=== PATIENT | female | born 1995 | race Caucasian/White ===

== ENCOUNTER 2016-04-28 22:19 | Emergency (ER) | payer OTHER ==
--- NOTE | 2016-04-29 06:25 | DIAGNOSTIC IMAGING REPORT ---
PROCEDURE: CT HEAD WITHOUT CONTRAST INDICATION: HEADACHE TECHNIQUE: Noncontrast axial images with sagittal and coronal reformations. Report provided by Isabel Cordova MD ([facility]). COMPARISON: None. FINDINGS: Brain and ventricles are normal. No evidence of an acute process or hemorrhage. Sinuses and mastoids are normal. IMPRESSION: 1. Negative head CT. All CT scans at this facility use dose modulation, iterative reconstruction, and/or weight-based dosing when appropriate to reduce radiation dose to as low as reasonably achievable.
--- NOTE | 2016-04-29 06:25 | DIAGNOSTIC IMAGING REPORT ---
PROCEDURE: CT HEAD WITHOUT CONTRAST INDICATION: HEADACHE TECHNIQUE: Noncontrast axial images with sagittal and coronal reformations. Report provided by Isabel Cordova MD ([facility]). COMPARISON: None. FINDINGS: Brain and ventricles are normal. No evidence of an acute process or hemorrhage. Sinuses and mastoids are normal. IMPRESSION: 1. Negative head CT. All CT scans at this facility use dose modulation, iterative reconstruction, and/or weight-based dosing when appropriate to reduce radiation dose to as low as reasonably achievable.
--- NOTE | 2016-04-29 06:26 | DIAGNOSTIC IMAGING REPORT ---
PROCEDURE: XR CHEST 1 VIEW INDICATION: TACHYCARDIA/METH TECHNIQUE: Portable AP view (0340 hours) COMPARISON: None. FINDINGS: Lungs are clear. Heart and mediastinum are normal. Thorax is normal. IMPRESSION: 1. Negative chest.
--- NOTE | 2016-04-29 07:50 | ED CLINICAL REPORT ---
Clinical Report - Physicians/Mid Levels [facility] [address] [place] [place] [address] 04/28/2016 22:21 Patient: LINDA SHEPHERD Time Seen: 22:25. Arrived- By private vehicle. HISTORY OF PRESENT ILLNESS Chief Complaint: HEADACHE. Is still present. This started at 2200 PM; Pt had done IV meth one hour prior to the onset of severe body aches a worst headache of her life. (Came on over an hour). It is described as similar to previous headaches. Located in the right temporal and left temporal region. No preceding symptoms, blurred vision, photophobia, associated nausea or numbness. No weakness or vomiting. (5 years ago similar after meth.). Recent medical care: Not recently seen/assessed. REVIEW OF SYSTEMS No fever, ear pain, sore throat, carbon monoxide exposure or tick bite. No head injury, chest pain, difficulty breathing, cough or abdominal pain. No diarrhea, pain with urination, skin rash, enlarged lymph nodes or back pain. The patient has had muscle aches. PAST HISTORY PCP: None but has commercial insurance PROBLEMS: Ureterolithiasis. Ovarian Cyst. Abdominal Pain. UTI - Urinary Tract Infection. . Asthma. ADDITIONAL SURGERIES: Adenoidectomy. Appendectomy. Tonsillectomy. SOCIAL HISTORY History of IV drug use: methamphetamines. ADDITIONAL NOTES The nursing notes have been reviewed. PHYSICAL EXAM Vital Signs: 04/29/2016 08:01 BP: 103/62. HR: 120. RR: 17. O2 saturation: 100%. Temp: 98.1 F. Pain level now: 0. 04/29/2016 07:09 BP: 93/46. HR: 122. RR: 15. O2 saturation: 98%. Temp: 98.1 F. Pain level now: 0. 04/29/2016 06:30 BP: 92/53. HR: 129. RR: 16. O2 saturation: 98%. 04/29/2016 05:45 BP: 96/44. HR: 123. RR: 16. O2 saturation: 98%. 04/29/2016 05:15 BP: 95/48. HR: 127. RR: 15. O2 saturation: 98%. 04/29/2016 04:21 BP: 101/49. 04/29/2016 03:45 HR: 123. RR: 16. O2 saturation: 98%. 04/29/2016 03:30 HR: 124. RR: 16. O2 saturation: 98%. 04/29/2016 03:00 BP: 103/70. HR: 124. RR: 16. O2 saturation: 98%. 04/29/2016 02:30 HR: 120. RR: 16. O2 saturation: 98%. 04/29/2016 02:15 BP: 106/65. HR: 121. RR: 17. O2 saturation: 98%. 04/29/2016 01:30 BP: 105/56. HR: 125. RR: 18. O2 saturation: 99%. 04/29/2016 01:22 BP: 111/60. HR: 127. RR: 21. O2 saturation: 99%. Cazares-Cai pain scale: 0/10. 04/29/2016 00:37 BP: 110/52. HR: 131. RR: 16. O2 saturation: 98%. 04/29/2016 00:00 BP: 111/43. HR: 130. RR: 21. O2 saturation: 100%. 04/28/2016 22:55 BP: 127/71. HR: 128. RR: 27. O2 saturation: 99%. 04/28/2016 22:25 BP: 144/87. HR: 113. RR: 22. O2 saturation: 100%. Temp: 97.9 F. Pain level now: 0/10. Appearance: Alert. Patient in moderate distress. Eyes: Pupils equal, round and reactive to light. No conjunctival findings or photophobia. ENT: Pharynx normal. Neck: Normal inspection. Neck supple. No meningeal signs. CVS: Tachycardia. Heart sounds normal. Respiratory: No respiratory distress. Breath sounds normal. Abdomen: Soft and nontender. Skin: Skin warm. Normal skin color. Extremities: Extremities exhibit normal ROM. No lower extremity edema. Neuro: Oriented X 3. Alert. Mood/affect normal. Speech normal. Cranial nerves normal (as tested). No motor deficit. No sensory deficit. LABS, X-RAYS, AND EKG EKG: No acute ischemia. Rate: 122. Narrow-complex tachycardia (122). Chest X-ray: Normal Chest X-Ray. (PROCEDURE: XR CHEST 1 VIEW INDICATION: TACHYCARDIA/METH TECHNIQUE: Portable AP view (0340 hours) COMPARISON: None. FINDINGS: Lungs are clear. Heart and mediastinum are normal. Thorax is normal. IMPRESSION: 1. Negative chest. Dictated by: RANGEL CARLIN MD D: JETT;04/29/16624 <Electronically signed by RANGEL CARLIN MD in OV> 04/29/16625). CT Head: (INDICATION: HEADACHE TECHNIQUE: Noncontrast axial images with sagittal and coronal reformations. Report provided by Isabel Cordova MD ([facility]). COMPARISON: None. FINDINGS: Brain and ventricles are normal. No evidence of an acute process or hemorrhage. Sinuses and mastoids are normal. IMPRESSION: 1. Negative head CT. All CT scans at this facility use dose modulation, iterative reconstruction, and/or weight-based dosing when appropriate to reduce radiation dose to as low as reasonably achievable. Dictated by: RANGEL CARLIN MD D: JETT;04/29/16623 <Electronically signed by RANGEL CARLIN MD in OV> 04/29/16624). Laboratory Tests: CSF, Cell Count: (ALMA: 04/29/2016 02:25) ( MsgRcvd 04/29/2016 03:10) Final results Test Result Flag Units (Reference) CSF TOTAL VOLUME 4.0 CC TUBE # 3 COLOR COLORLESS APPEARANCE CLEAR CSF WBC 2 WBC/mm3 (0-5) CSF RBC 1 RBC/mm3 (0-5) CSF GLUCOSE 59 mg/dL (40-75) CSF PROTEIN 52.2 H mg/dL (15-45) NO REFERENCE RANGE. UA-Culture if indicated: (ALMA: 04/28/2016 23:08) ( MsgRcvd 04/28/2016 23:29) Final results Test Result Flag Units (Reference) URINE COLOR YELLOW URINE APPEARANCE CLOUDY URINE GLUCOSE NEGATIVE (NEGATIVE) URINE BILIRUBIN NEGATIVE (NEGATIVE) URINE KETONE NEGATIVE (NEGATIVE) URINE SPECIFIC GRAVITY 1.020 (1.010-1.030) URINE PH 7.5 (5.0-8.0) URINE PROTEIN NEGATIVE (NEGATIVE) URINE UROBILINOGEN 0.2 EU/dL (0.2-1.0) URINE NITRITE NEGATIVE (NEGATIVE) URINE BLOOD NEGATIVE (NEGATIVE) URINE LEUK ESTERASE NEGATIVE (NEGATIVE) URINE RBC 0-1 rbc/hpf (0-1) URINE WBC 0-1 wbc/hpf (0-1) URINE EPITHELIAL CELLS 1-3 EPI/hpf (0-5) URINE BACTERIA NONE SEEN (NONE SEEN) URINE COMMENT CULT NOT INDICATED 3+ AMORPHOUSURINE CULTURES ARE SET-UP BASED ON THE FOLLOWING CRITERIA:POSITIVE NITRITEPOSITIVE LEUKOCYTE ESTERASEGREATER THAN 10 WHITE BLOOD CELLSMODERATE (2+) OR GREATER BACTERIA Urine: (ALMA: 04/28/2016 23:08) ( [facility] [place] 04/28/[place] 23:25) Final results Test Result Flag Units (Reference) URINE NEGATIVE CBC w Diff: (ALMA: 04/28/2016 22:25) ( [facility] 04/28/2016 22:54) Final results Test Result Flag Units (Reference) WHITE BLOOD COUNT 5.4 K/uL (4.5-11.5) RED BLOOD COUNT 4.59 M/uL (4.00-5.20) HEMOGLOBIN 13.8 gm/dL (12.0-16.0) HEMATOCRIT 40.6 % (36.0-46.0) MEAN CELL VOLUME 89 fL (80-100) MEAN CORPUSCULAR HGB 30 pg (26-34) MEAN CORPUSCULAR HGB CONC 34 g/dL (31-37) RED CELL DISTRIBUTION WIDTH 12.9 % (11.6-14.8) PLATELET COUNT 224 K/uL (150-400) NEUTROPHIL % 73.7 % (50-75) LYMPH % 24.6 L % (25-40) MONO % 0.3 L % (3-14) EOSINOPHIL % 1.2 % (0-4) BASOPHIL % 0.2 % (0-2) CMP: (ALMA: 04/28/2016 22:25) ( [facility] 04/28/2016 23:05) Final results Test Result Flag Units (Reference) GLUCOSE 81 mg/dL (70-110) BUN 14 mg/dL (7-18) CREATININE 0.9 mg/dL (0.6-1.3) Estimated GFR >60 mL/min Estimated GFR- >60 mL/min Note: Persistent reduction over 3 months in eGFR<60 mL/min/1.73 m2 defines CKD. Patients with eGFR values>=60 mL/min/1.73 m2 may also have CKD if evidence ofpersistent proteinuria. Additional information may be foundat www.kidney.org. SODIUM 143 mmol/L (136-145) POTASSIUM 3.5 mmol/L (3.5-5.1) CHLORIDE 105 mmol/L (98-107) CARBON DIOXIDE 29 mmol/L (21-32) CALCIUM 8.5 mg/dL (8.5-10.1) TOTAL PROTEIN 6.9 g/dL (6.4-8.2) ALBUMIN 3.4 g/dL (3.3-5.0) BILIRUBIN, TOTAL 0.4 mg/dL (0.0-1.0) ALKALINE PHOSPHATASE 83 U/L (46-116) AST (SGOT) 19 U/L (15-37) ALT (SGPT) 20 U/L (12-78) . PROGRESS AND PROCEDURES Course of Care: 03:23 04/29/16. CT and CSF show no sign of ICH. HR still 120-130 04:21 04/29/16. Poison control states that half life is 5 hours. So it might be 3 half lives before all effects are gone. Tachycaridia is not un expected. 05:26 04/29/16. Additional observation because of tachycardia 07:46 04/29/16. Asymptomatic sinus tach persists. Given all else negative will discharge with recheck if tachycardia persists. Disposition: Discharged. Condition: stable. CLINICAL IMPRESSION Headache. METHAMPHETAMINE ABUSE. SINUS TACHYCARDIA. INSTRUCTIONS (I MADE SURE THAT YOUR HEADACHE WAS NOT FROM NOT FROM BLEEDING IN THE BRAIN. IF YOUR HEART RATE IS OVER 100 TOMORROW YOU WILL NEED TO BE RECHECKED IN THE ED YOU NEED ASSISTANCE BECOMING DRUG FREE. CONSIDER THE FOLLOWING. Call [facility] office. Ask for Drug/Alcohol assessment [id number], [address] [place] [address] ). Understanding of the discharge instructions verbalized by patient. Follow-up with: Marilee Kent MD, [facility], , [facility], [address] [place] [address] Follow up. Reason for referral: ESTABLISH PRIMARY CARE. (Electronically signed by Laurent Cali MD 04/30/2016 10:38)
--- NOTE | 2016-04-29 07:50 | ED ORDER SUMMARY ---
..... Patient: LINDA SHEPHERD OrderSheet [facility] VisitID: [id number] [place] [address] 20y, F Registration Date/Time: 04/28/2016 ORDER SHEET Weight: 62.5 kg (measured) Allergies: No Known Drug Allergy GENERAL ORDERS: EKG - ER Stat (22:39 04/28/2016 TLewis R.N. per protocol) (Ack 22:40 Zhou) (22:47 AMcQuoid ER Tech1) CBC w Diff Urgent (22:48 04/28/2016 Merary CALDERON) (Ack 22:50 SRedmond) (22:58 LSullivan R.N.) CMP Urgent (22:48 04/28/2016 Merary CALDERON) (Ack 22:50 SRedmond) (22:58 LSullivan R.N.) UA-Culture if indicated Urgent (22:48 04/28/2016 Merary CALDERON) (Ack 22:50 SRedmond) (23:40 SRedmond) Urine Urgent (22:48 04/28/2016 Merary CALDERON) (Ack 22:50 SRedmond) (23:40 SRedmond) CT Head wo Cont (worst [place] shot meth) Urgent (23:51 04/28/2016 Merary CALDERON) (Ack 23:53 SRedmond) (0:16 RFay) CSF, Cell Count Urgent (02:27 04/29/2016 Merary CALDERON) (Ack 2:29 SRedmond) (Sent 2:29 SRedmond) (2:30 AMcQuoid ER Tech1) CSF, Culture Urgent (02:27 04/29/2016 Merary CALDERON) (Ack 2:29 SRedmond) (Sent 2:29 SRedmond) (2:30 AMcQuoid ER Tech1) CSF, Glucose Urgent (02:27 04/29/2016 Merary CALDERON) (Ack 2:29 SRedmond) (Sent 2:29 SRedmond) (2:30 AMcQuoid ER Tech1) CSF, Protein Urgent (02:27 04/29/2016 Merary CALDERON) (Ack 2:29 SRedmond) (Sent 2:29 SRedmond) (2:30 AMcQuoid ER Tech1) Chest 1V Urgent (03:25 04/29/2016 Merary CALDERON) (Ack 3:33 SRedmond) (3:44 RFay) - (RECHECK TEMP PLEASE) (04:09 04/29/2016 Merary CALDERON) (4:12 HSoule) CPK Urgent (04:21 04/29/2016 Merary CALDERON) (4:39 DDavis R.N.) MEDICATION ORDERS: IV FLUIDS: IV Saline Lock (22:33 04/28/2016 LSullivan R.N. verbal order read back to Merary CALDERON) (22:33 LSullivan R.N.) IV NS : initial bolus none -, then 250 mL/hr for 3h (NOW); Urgent (22:47 04/28/2016 Merary CALDERON) (22:58 LSullivan R.N.) Dilaudid IV 0.5 mg (HIGH ALERT MEDICATION) (23:56 04/28/2016 Merary CALDERON) (0:02 LSullivan R.N.) Zofran IV 4 mg (NOW) (23:56 04/28/2016 Merary CALDERON) (0:02 LSullivan R.N.) IV NS : initial bolus none -, then 1000 mL/hr for 1h (NOW); Urgent (04:11 04/29/2016 Merary CALDERON) (Ack 4:11 HSoule) (4:22 AMcKenna) ORDER SHEET NOTES: [Electronically signed by Citlalli Gonzalez R.N. (08:06 04/29/2016)] [Electronically signed by Laurent Cali MD (10:38 04/30/2016)] [Electronically locked/signed by Citlalli Gonzalez R.N. (08:06 04/29/2016)]
--- NOTE | 2016-04-29 07:50 | ED ORDER SUMMARY ---
..... Patient: LINDA SHEPHERD OrderSheet [facility] VisitID: [id number] [place], [place] [address] 20y, F Registration Date/Time: 04/28/2016 ORDER SHEET Weight: 62.5 kg (measured) Allergies: No Known Drug Allergy GENERAL ORDERS: EKG - ER Stat (22:39 04/28/2016 TLewis R.N. per protocol) (Ack 22:40 Zhou) (22:47 AMcQuoid ER Tech1) CBC w Diff Urgent (22:48 04/28/2016 Merary CALDERON) (Ack 22:50 SRedmond) (22:58 LSullivan R.N.) CMP Urgent (22:48 04/28/2016 Merary CALDERON) (Ack 22:50 SRedmond) (22:58 LSullivan R.N.) UA-Culture if indicated Urgent (22:48 04/28/2016 Merary CALDERON) (Ack 22:50 SRedmond) (23:40 SRedmond) Urine Urgent (22:48 04/28/2016 Merary CALDERON) (Ack 22:50 SRedmond) (23:40 SRedmond) CT Head wo Cont (worst [place]ung[place] shot meth) Urgent (23:51 04/28/2016 Merary CALDERON) (Ack 23:53 SRedmond) (0:16 RFay) CSF, Cell Count Urgent (02:27 04/29/2016 Merary CALDERON) (Ack 2:29 SRedmond) (Sent 2:29 SRedmond) (2:30 AMcQuoid ER Tech1) CSF, Culture Urgent (02:27 04/29/2016 Merary CALDERON) (Ack 2:29 SRedmond) (Sent 2:29 SRedmond) (2:30 AMcQuoid ER Tech1) CSF, Glucose Urgent (02:27 04/29/2016 Merary CALDERON) (Ack 2:29 SRedmond) (Sent 2:29 SRedmond) (2:30 AMcQuoid ER Tech1) CSF, Protein Urgent (02:27 04/29/2016 Merary CALDERON) (Ack 2:29 SRedmond) (Sent 2:29 SRedmond) (2:30 AMcQuoid ER Tech1) Chest 1V Urgent (03:25 04/29/2016 Merary CALDERON) (Ack 3:33 SRedmond) (3:44 RFay) - (RECHECK TEMP PLEASE) (04:09 04/29/2016 Merary CALDERON) (4:12 HSoule) CPK Urgent (04:21 04/29/2016 Merary CALDERON) (4:39 DDavis R.N.) MEDICATION ORDERS: IV FLUIDS: IV Saline Lock (22:33 04/28/2016 LSullivan R.N. verbal order read back to Merary CALDERON) (22:33 LSullivan R.N.) IV NS : initial bolus none -, then 250 mL/hr for 3h (NOW); Urgent (22:47 04/28/2016 Merary CALDERON) (22:58 LSullivan R.N.) Dilaudid IV 0.5 mg (HIGH ALERT MEDICATION) (23:56 04/28/2016 Merary CALDERON) (0:02 LSullivan R.N.) Zofran IV 4 mg (NOW) (23:56 04/28/2016 Merary CALDERON) (0:02 LSullivan R.N.) IV NS : initial bolus none -, then 1000 mL/hr for 1h (NOW); Urgent (04:11 04/29/2016 Merary CALDERON) (Ack 4:11 HSoule) (4:22 AMcKenna) ORDER SHEET NOTES: [Electronically signed by Citlalli Gonzalez R.N. (08:06 04/29/2016)] [Electronically signed by Laurent Cali MD (10:38 04/30/2016)] [Electronically locked/signed by Citlalli Gonzalez R.N. (08:06 04/29/2016)]
--- NOTE | 2016-04-29 07:50 | ED CLINICAL REPORT ---
Clinical Report - Physicians/Mid Levels [facility] [address] [place] [address] 04/28/2016 22:21 Patient: LINDA SHEPHERD Time Seen: 22:25. Arrived- By private vehicle. HISTORY OF PRESENT ILLNESS Chief Complaint: HEADACHE. Is still present. This started at 2200 PM; Pt had done IV meth one hour prior to the onset of severe body aches a worst headache of her life. (Came on over an hour). It is described as similar to previous headaches. Located in the right temporal and left temporal region. No preceding symptoms, blurred vision, photophobia, associated nausea or numbness. No weakness or vomiting. (5 years ago similar after meth.). Recent medical care: Not recently seen/assessed. REVIEW OF SYSTEMS No fever, ear pain, sore throat, carbon monoxide exposure or tick bite. No head injury, chest pain, difficulty breathing, cough or abdominal pain. No diarrhea, pain with urination, skin rash, enlarged lymph nodes or back pain. The patient has had muscle aches. PAST HISTORY PCP: None but has commercial insurance PROBLEMS: Ureterolithiasis. Ovarian Cyst. Abdominal Pain. UTI - Urinary Tract Infection. . Asthma. ADDITIONAL SURGERIES: Adenoidectomy. Appendectomy. Tonsillectomy. SOCIAL HISTORY History of IV drug use: methamphetamines. ADDITIONAL NOTES The nursing notes have been reviewed. PHYSICAL EXAM Vital Signs: 04/29/2016 08:01 BP: 103/62. HR: 120. RR: 17. O2 saturation: 100%. Temp: 98.1 F. Pain level now: 0. 04/29/2016 07:09 BP: 93/46. HR: 122. RR: 15. O2 saturation: 98%. Temp: 98.1 F. Pain level now: 0. 04/29/2016 06:30 BP: 92/53. HR: 129. RR: 16. O2 saturation: 98%. 04/29/2016 05:45 BP: 96/44. HR: 123. RR: 16. O2 saturation: 98%. 04/29/2016 05:15 BP: 95/48. HR: 127. RR: 15. O2 saturation: 98%. 04/29/2016 04:21 BP: 101/49. 04/29/2016 03:45 HR: 123. RR: 16. O2 saturation: 98%. 04/29/2016 03:30 HR: 124. RR: 16. O2 saturation: 98%. 04/29/2016 03:00 BP: 103/70. HR: 124. RR: 16. O2 saturation: 98%. 04/29/2016 02:30 HR: 120. RR: 16. O2 saturation: 98%. 04/29/2016 02:15 BP: 106/65. HR: 121. RR: 17. O2 saturation: 98%. 04/29/2016 01:30 BP: 105/56. HR: 125. RR: 18. O2 saturation: 99%. 04/29/2016 01:22 BP: 111/60. HR: 127. RR: 21. O2 saturation: 99%. Cazares-Cai pain scale: 0/10. 04/29/2016 00:37 BP: 110/52. HR: 131. RR: 16. O2 saturation: 98%. 04/29/2016 00:00 BP: 111/43. HR: 130. RR: 21. O2 saturation: 100%. 04/28/2016 22:55 BP: 127/71. HR: 128. RR: 27. O2 saturation: 99%. 04/28/2016 22:25 BP: 144/87. HR: 113. RR: 22. O2 saturation: 100%. Temp: 97.9 F. Pain level now: 0/10. Appearance: Alert. Patient in moderate distress. Eyes: Pupils equal, round and reactive to light. No conjunctival findings or photophobia. ENT: Pharynx normal. Neck: Normal inspection. Neck supple. No meningeal signs. CVS: Tachycardia. Heart sounds normal. Respiratory: No respiratory distress. Breath sounds normal. Abdomen: Soft and nontender. Skin: Skin warm. Normal skin color. Extremities: Extremities exhibit normal ROM. No lower extremity edema. Neuro: Oriented X 3. Alert. Mood/affect normal. Speech normal. Cranial nerves normal (as tested). No motor deficit. No sensory deficit. LABS, X-RAYS, AND EKG EKG: No acute ischemia. Rate: 122. Narrow-complex tachycardia (122). Chest X-ray: Normal Chest X-Ray. (PROCEDURE: XR CHEST 1 VIEW INDICATION: TACHYCARDIA/METH TECHNIQUE: Portable AP view (0340 hours) COMPARISON: None. FINDINGS: Lungs are clear. Heart and mediastinum are normal. Thorax is normal. IMPRESSION: 1. Negative chest. Dictated by: RANGEL CARLIN MD D: JETT;04/29/16624 <Electronically signed by RANGEL CARLIN MD in OV> 04/29/16625). CT Head: (INDICATION: HEADACHE TECHNIQUE: Noncontrast axial images with sagittal and coronal reformations. Report provided by Isabel Cordova MD ([facility]). COMPARISON: None. FINDINGS: Brain and ventricles are normal. No evidence of an acute process or hemorrhage. Sinuses and mastoids are normal. IMPRESSION: 1. Negative head CT. All CT scans at this facility use dose modulation, iterative reconstruction, and/or weight-based dosing when appropriate to reduce radiation dose to as low as reasonably achievable. Dictated by: RANGEL CARLIN MD D: JETT;04/29/16623 <Electronically signed by RANGEL CARLIN MD in OV> 04/29/16624). Laboratory Tests: CSF, Cell Count: (ALMA: 04/29/2016 02:25) ( MsgRcvd 04/29/2016 03:10) Final results Test Result Flag Units (Reference) CSF TOTAL VOLUME 4.0 CC TUBE # 3 COLOR COLORLESS APPEARANCE CLEAR CSF WBC 2 WBC/mm3 (0-5) CSF RBC 1 RBC/mm3 (0-5) CSF GLUCOSE 59 mg/dL (40-75) CSF PROTEIN 52.2 H mg/dL (15-45) NO REFERENCE RANGE. UA-Culture if indicated: (ALMA: 04/28/2016 23:08) ( MsgRcvd 04/28/2016 23:29) Final results Test Result Flag Units (Reference) URINE COLOR YELLOW URINE APPEARANCE CLOUDY URINE GLUCOSE NEGATIVE (NEGATIVE) URINE BILIRUBIN NEGATIVE (NEGATIVE) URINE KETONE NEGATIVE (NEGATIVE) URINE SPECIFIC GRAVITY 1.020 (1.010-1.030) URINE PH 7.5 (5.0-8.0) URINE PROTEIN NEGATIVE (NEGATIVE) URINE UROBILINOGEN 0.2 EU/dL (0.2-1.0) URINE NITRITE NEGATIVE (NEGATIVE) URINE BLOOD NEGATIVE (NEGATIVE) URINE LEUK ESTERASE NEGATIVE (NEGATIVE) URINE RBC 0-1 rbc/hpf (0-1) URINE WBC 0-1 wbc/hpf (0-1) URINE EPITHELIAL CELLS 1-3 EPI/hpf (0-5) URINE BACTERIA NONE SEEN (NONE SEEN) URINE COMMENT CULT NOT INDICATED 3+ AMORPHOUSURINE CULTURES ARE SET-UP BASED ON THE FOLLOWING CRITERIA:POSITIVE NITRITEPOSITIVE LEUKOCYTE ESTERASEGREATER THAN 10 WHITE BLOOD CELLSMODERATE (2+) OR GREATER BACTERIA Urine: (ALMA: 04/28/2016 23:08) ( [facility] 04/28/[place] 23:25) Final results Test Result Flag Units (Reference) URINE NEGATIVE CBC w Diff: (ALMA: 04/28/2016 22:25) ( [facility] 04/28/2016 22:54) Final results Test Result Flag Units (Reference) WHITE BLOOD COUNT 5.4 K/uL (4.5-11.5) RED BLOOD COUNT 4.59 M/uL (4.00-5.20) HEMOGLOBIN 13.8 gm/dL (12.0-16.0) HEMATOCRIT 40.6 % (36.0-46.0) MEAN CELL VOLUME 89 fL (80-100) MEAN CORPUSCULAR HGB 30 pg (26-34) MEAN CORPUSCULAR HGB CONC 34 g/dL (31-37) RED CELL DISTRIBUTION WIDTH 12.9 % (11.6-14.8) PLATELET COUNT 224 K/uL (150-400) NEUTROPHIL % 73.7 % (50-75) LYMPH % 24.6 L % (25-40) MONO % 0.3 L % (3-14) EOSINOPHIL % 1.2 % (0-4) BASOPHIL % 0.2 % (0-2) CMP: (ALMA: 04/28/2016 22:25) ( [facility] 04/28/2016 23:05) Final results Test Result Flag Units (Reference) GLUCOSE 81 mg/dL (70-110) BUN 14 mg/dL (7-18) CREATININE 0.9 mg/dL (0.6-1.3) Estimated GFR >60 mL/min Estimated GFR- >60 mL/min Note: Persistent reduction over 3 months in eGFR<60 mL/min/1.73 m2 defines CKD. Patients with eGFR values>=60 mL/min/1.73 m2 may also have CKD if evidence ofpersistent proteinuria. Additional information may be foundat www.kidney.org. SODIUM 143 mmol/L (136-145) POTASSIUM 3.5 mmol/L (3.5-5.1) CHLORIDE 105 mmol/L (98-107) CARBON DIOXIDE 29 mmol/L (21-32) CALCIUM 8.5 mg/dL (8.5-10.1) TOTAL PROTEIN 6.9 g/dL (6.4-8.2) ALBUMIN 3.4 g/dL (3.3-5.0) BILIRUBIN, TOTAL 0.4 mg/dL (0.0-1.0) ALKALINE PHOSPHATASE 83 U/L (46-116) AST (SGOT) 19 U/L (15-37) ALT (SGPT) 20 U/L (12-78) . PROGRESS AND PROCEDURES Course of Care: 03:23 04/29/16. CT and CSF show no sign of ICH. HR still 120-130 04:21 04/29/16. Poison control states that half life is 5 hours. So it might be 3 half lives before all effects are gone. Tachycaridia is not un expected. 05:26 04/29/16. Additional observation because of tachycardia 07:46 04/29/16. Asymptomatic sinus tach persists. Given all else negative will discharge with recheck if tachycardia persists. Disposition: Discharged. Condition: stable. CLINICAL IMPRESSION Headache. METHAMPHETAMINE ABUSE. SINUS TACHYCARDIA. INSTRUCTIONS (I MADE SURE THAT YOUR HEADACHE WAS NOT FROM NOT FROM BLEEDING IN THE BRAIN. IF YOUR HEART RATE IS OVER 100 TOMORROW YOU WILL NEED TO BE RECHECKED IN THE ED YOU NEED ASSISTANCE BECOMING DRUG FREE. CONSIDER THE FOLLOWING. [facility]. Ask for Drug/Alcohol assessment [id number], [address] [place] [address] ). Understanding of the discharge instructions verbalized by patient. Follow-up with: Marilee Kent MD, [facility], , [facility], [address] [place] [address] Follow up. Reason for referral: ESTABLISH PRIMARY CARE. (Electronically signed by Laurent Cali MD 04/30/2016 10:38)
--- NOTE | 2016-04-29 07:50 | ED NURSING NOTES ---
Clinical Report - Nurses [facility] [place] [address] 04/28/2016 22:21 Patient: MIYA SHEPHERD TRIAGE Triage time 22:25. Chief Complaint: DRUG OVERDOSE (pt was shooting up meth in the parking lot). Alert. SHAE COMA SCORE: Shae Coma Scale: 15- eyes open spontaneously (4); best verbal response- oriented x 4 (5); best motor response- obeys commands (6). --22:31 Soila Saavedra R.N. 22:25 04/28/16. BP: 144/87. HR: 113. RR: 22. O2 saturation: 100%. Temp: 97.9 F. Pain level now: 0/10. --22:31 Soila Saavedra R.N. Weight: 62.5 kg measured. Height/Length: 65 inches. BMI: 23. --22:30 Soila Saavedra R.N. Medications Albuterol Sulfate HFA Inhalation. --22:27 Soila Saavedra R.N. Allergies No Known Drug Allergy. --22:28 Soila Saavedra R.N. History Arrived by private vehicle. Historian: patient. Primary physician (none). This occurred just prior to arrival. ( complaining of headache, had this kind of headache 5 years ago). SOCIAL HX: Heavy tobacco smoker- 1 pack per day. History of drug use: methamphetamines. Recently used drugs just prior to arrival and today. SELF HARM ASSESSMENT: A self harm assessment was performed. The patient answered "no" to the question "Do you have thoughts of harming or killing yourself?", "Are you here because you tried to hurt yourself?" and "Have you ever tried to hurt yourself before today?". ABUSE ASSESSMENT: Abuse assessment: ("yes") The patient was asked "Do you feel safe in your home?". --22:31 Soila Saavedra R.N. PROBLEMS: Ureterolithiasis. Ovarian Cyst. Abdominal Pain. UTI - Urinary Tract Infection. . Asthma. --22:28 Soila Saavedra R.N. ADDITIONAL SURGERIES: Adenoidectomy. Appendectomy. Tonsillectomy. --22:28 Soila Saavedra R.N. Interventions ID band on patient. To room. --22:31 Soila Saavedra R.N. PHYSICAL ASSESSMENT GENERAL / NEURO / PSYCH: (Pt acting withdrawn, making grimacing faces). --22:32 Soila Saavedra R.N. 01:15. ( Assumed care of patient, report received from Soila RN). --01:22 Gordy Hernandez R.N. ( Supplies for Lumbar puncture provided at bedside per physician request.). --01:24 Gordy Hernandez R.N. 01:22 04/29/16. BP: 111/60 (regular adult cuff). HR: 127 (regular). RR: 21 (regular and labored). O2 saturation: 99% on room air. Cazares-Cai pain scale: 0/10. Additional comments: S-Tach on monitor. --01:24 Gordy Hernandez R.N. <<STRICKEN ENTRY-- 01:22 04/29/16. BP: 111/60 (regular adult cuff). HR: 127 (regular). RR: 21 (regular and labored). O2 saturation: 99% on room air. Cazares-Cai pain scale: 0/10. --01:24 Gordy Hernandez R.N. --END STRIKE>> Change to Details. --02:49 Gordy Hernandez R.N. GENERAL / NEURO / PSYCH: Alert. Oriented X 4. Patient appears calm and cooperative. Speech within normal limits. RESPIRATORY: Respirations not labored. Breath sounds within normal limits. CVS: ( S-Tach). Capillary refill less than 2 seconds. SKIN: Skin intact. Skin is warm and dry. Skin color is within normal limits. --02:45 Gordy Hernandez R.N. 04:21 04/29/16. BP: 101/49 taken while lying. --04:22 Gordy Hernandez R.N. NURSING PROGRESS NOTES 22:32 04/28/16. Patient gowned. Head of bed elevated. Reassurance given. Patient identifiers checked. Call light placed in reach. Side rails up. Bed placed in lowest position. Patient ready for evaluation- chart flagged. --22:32 Soila Saavedra R.N. <<STRICKEN ENTRY-- 22:33 04/28/2016 Site #1 started via IV in the right antecubital space with an 18g angiocath, with aseptic technique and good blood return; one attempt. Blood drawn: rainbow set. Labeled in the presence of the patient and sent to the lab. Saline lock flushed with 10 mL saline. --22:33 Soila Saavedra R.N. --END STRIKE>> Change to Details. --22:34 Soila Saavedra R.N. 22:33 04/28/2016 Site #1 started via IV in the right antecubital space with an 18g angiocath, with aseptic technique and good blood return; one attempt. Blood drawn: rainbow set. Labeled in the presence of the patient and sent to the lab. Saline lock flushed with 10 mL saline (by MÓNICA Church). --22:34 Soila Saavedra R.N. 22:44. EKG was performed by a tech and shown to the ED physician. --22:48 Miya Bynum ER Tech1 nuclear monitoring technician, pulse oximeter and NIBP monitor placed on patient; (Telemetry strip posted to chart). --22:48 Miya Bynum, ER Tech1 22:55 04/28/16. BP: 127/71. HR: 128. RR: 27. O2 saturation: 99%. --22:57 Soila Saavedra R.N. 22:58 04/28/2016 Started bag #1 1000 mL IV Fluids IV NS (Saline); at 250 mL/hr via site #1 via IV pump. Confirmed 5 rights. IV patency established. IV site checked: no pain, redness, or swelling. IV flushed thoroughly pre- and post-medication administration. --22:58 Soila Saavedra R.N. 23:14 04/28/16. Patient ID band checked for patient name and birthdate: patient confirmed. Clean catch urine collected with return of miya-colored cloudy urine; sample sent to lab. Specimen labeled in the presence of the patient. --23:14 Soila Saavedra R.N. ( Pt was assisted to bedside commode, and back to bed). --23:14 Soila Saavedra R.N. 23:57 04/28/2016 Zofran (Ondansetron HCl) IVP 4 mg given over 1 minute(s) via site #1. Confirmed 5 rights. --00:02 Soila Saavedra R.N. 00:02 04/29/2016 Dilaudid (HYDROmorphone HCl PF) IVP 0.5 mg given over 1 minute(s) via site #1. Confirmed 5 rights and sedative warning given. --00:02 Soila Saavedra R.N. 00:04 04/29/16. Patient transported to [place] by stretcher with tech. --00:04 Soila Saavedra R.N. Patient returned from CT. --00:14 Soila Saavedra R.N. 00:00 04/29/16. BP: 111/43. HR: 130. RR: 21. O2 saturation: 100%. --00:37 Soila Saavedra R.N. 00:37 04/29/16. BP: 110/52. HR: 131. RR: 16. O2 saturation: 98%. --00:38 Soila Saavedra R.N. 02:10 - Lumbar Puncture begun, Dr Cali performing. ( CSF specimens carried to lab by RN). --02:39 Gordy Hernandez R.N. 03:49 04/29/2016 IV Fluids IV NS Discontinued: bag #1 completed. Total amount infused: 1000 mL. IV patency established. IV site checked: no pain, redness, or swelling. IV flushed thoroughly. --03:49 AliM Pulse oximeter and NIBP monitor placed on patient. Reassurance given. Call light placed in reach. Side rails up x 2. Bed placed in lowest position. Brakes of bed on. --03:49 AliM 03:45 04/29/16. HR: 123 (regular and tachycardic). RR: 16. O2 saturation: 98% on room air. --04:01 Gordy Hernandez R.N. GENERAL / NEURO / PSYCH: Patient is calm and cooperative. Alert. Oriented X 4. RESPIRATORY: No respiratory distress. ( patient resting in bed). --04:01 Gordy Hernandez R.N. 04:22 04/29/2016 Started bag #2 1000 mL IV Fluids IV NS (Saline); at 1000 mL/hr over 60 minute(s) via site #1. Allergies verified and confirmed 5 rights. IV patency established. IV site checked: no pain, redness, or swelling. IV flushed thoroughly pre- and post-medication administration. Completed per protocol. --04:22 AliM ( I called lab and requested the CPK add-on to blood samples previously obtained, lab confirmed.). --04:40 Gordy Hernandez R.N. 06:30 04/29/16. BP: 92/53. HR: 129 (regular and tachycardic). RR: 16 (regular and unlabored). O2 saturation: 98% on room air. Additional comments: patient sleeping. --06:59 Gordy Hernandez R.N. GENERAL / NEURO / PSYCH: Patient is calm and cooperative. Call light placed in reach. Side rails up x 2. ( patient sleeping.). --06:59 Gordy Hernandez R.N. Care transferred and report given (ANGELA Lennon). --07:04 Gordy Hernandez R.N. 07:09 04/29/16. BP: 93/46. HR: 122. RR: 15. O2 saturation: 98% on room air. Temp: 98.1 F (oral). Pain level now: 0/10. --07:10 Citlalli Gonzalez R.N. 07:05 04/29/2016 IV Fluids IV NS Discontinued: bag #2 infused. Total amount infused: 1000 mL. IV patency established. IV site checked: no pain, redness, or swelling. IV flushed thoroughly. --08:05 Citlalli Gonzalez R.N. DISPOSITION / DISCHARGE Departure time: 08:00 Apr 29 2016. Condition at departure: improved and stable. No learning barriers present. Discharge instructions provided and reviewed with the patient. Reviewed referrals (drug rehab). Patient verbalized understanding. Written instructions provided in Kenyan. The patient was discharged by the physician. She was discharged home. She left the Emergency Department ambulatory and via private vehicle. --08:04 Citlalli Gonzalez R.N. 08:01 04/29/16. BP: 103/62. HR: 120. HR. ED physician notified. RR: 17 (regular and unlabored). O2 saturation: 100% on room air. Temp: 98.1 F (oral). Pain level now: 0/10. --08:04 Citlalli Gonzalez R.N. 08:00 04/29/2016 Site #1 removed upon discharge. Catheter intact. Manual pressure and bandage applied. --08:04 Citlalli Gonzalez R.N. Locked/Released at 04/29/2016 8:06 by Citlalli Gonzalez R.N.
--- NOTE | 2016-04-30 10:38 | ED MED RECONCILIATION SUMMARY ---
Patient: LINDA SHEPHERD Medication Reconciliation Report [facility] VisitID: [id number] [place] [address] 20y, F Registration Date/Time: 04/28/2016 Weight: 62.5 kg Height/Length: 65 in. BMI: 23.0 ALLERGIES: No Known Drug Allergy The patient's Home Medications are listed below: THE FOLLOWING MEDICATIONS NEED TO BE RECONCILED: Albuterol Sulfate HFA Inhalation The source(s) of the original Home Medication information: Not obtained. The following Medications were given to the patient in the Emergency Department: IV NS IV Fluids bolus 0, then 250 mL/hr, administered: 04/28/2016 10:58:00 PM Zofran [IVP] IVP 4 mg, administered: 04/28/2016 11:57:00 PM Dilaudid [IVP] IVP 0.5 mg, administered: 04/29/2016 12:02:00 AM IV NS IV Fluids bolus 0, then 1000 mL/hr, administered: 04/29/2016 4:22:00 AM The following Medications were prescribed to the patient: None.
--- NOTE | 2016-04-30 10:38 | ED MED RECONCILIATION SUMMARY ---
Patient: LINDA SHEPHERD Medication Reconciliation Report [facility] VisitID: [id number] [place] [address] 20y, F Registration Date/Time: 04/28/2016 Weight: 62.5 kg Height/Length: 65 in. BMI: 23.0 ALLERGIES: No Known Drug Allergy The patient's Home Medications are listed below: THE FOLLOWING MEDICATIONS NEED TO BE RECONCILED: Albuterol Sulfate HFA Inhalation The source(s) of the original Home Medication information: Not obtained. The following Medications were given to the patient in the Emergency Department: IV NS IV Fluids bolus 0, then 250 mL/hr, administered: 04/28/2016 10:58:00 PM Zofran [IVP] IVP 4 mg, administered: 04/28/2016 11:57:00 PM Dilaudid [IVP] IVP 0.5 mg, administered: 04/29/2016 12:02:00 AM IV NS IV Fluids bolus 0, then 1000 mL/hr, administered: 04/29/2016 4:22:00 AM The following Medications were prescribed to the patient: None.
--- NOTE | 2016-04-30 10:38 | ED MAR SUMMARY ---
..... Medication Administration Record [facility] [address] [place] [address] Patient: LINDA SHEPHERD Visit ID: [id number] 20y, F Weight: 62.5 kg Height/Length: 65 in BMI: 23 ALLERGIES: No Known Drug Allergy Start 22:58 04/28/2016 Soila Saavedra RShadyN., Stop 03:49 04/29/2016 AliM, Medication Administered: IV NS (SALINE), Dose: IV Fluids, Rate: 250 mL/hr, Dispensed: 1000 mL bag, Site: #1 right AC. Medication Ordered: IV NS : initial bolus none -, then 250 mL/hr for 3h (NOW); Urgent. Given 23:57 04/28/2016 Soila Saavedra R.N. Medication Administered: ZOFRAN [IVP] (ONDANSETRON HCL), Dose: 4 mg IVP over 1 minute(s), Site: #1 right AC. Medication Ordered: Zofran IV 4 mg (NOW). Given 00:02 04/29/2016 Soila Saavedra RShadyN. Medication Administered: DILAUDID [IVP] (HYDROMORPHONE HCL PF), Dose: 0.5 mg IVP over 1 minute(s), Site: #1 right AC. Medication Ordered: Dilaudid IV 0.5 mg (HIGH ALERT MEDICATION). Start 04:22 04/29/2016 Titi,, Stop 07:05 04/29/2016 Citlalli Gonzalez RDimas. Medication Administered: IV NS (SALINE), Dose: IV Fluids over 60 minute(s), Rate: 1000 mL/hr, Dispensed: 1000 mL bag, Site: #1 right AC. Medication Ordered: IV NS : initial bolus none -, then 1000 mL/hr for 1h (NOW); Urgent.
--- NOTE | 2016-04-30 10:38 | ED DISCHARGE INSTRUCTIONS ---
Patient: LINDA SHEPHERD General Instructions [facility] VisitID: [id number] [place] [address] 20y, F Registration Date/Time: 04/28/2016 Headache. METHAMPHETAMINE ABUSE. SINUS TACHYCARDIA. INSTRUCTIONS (I MADE SURE THAT YOUR HEADACHE WAS NOT FROM NOT FROM BLEEDING IN THE BRAIN. IF YOUR HEART RATE IS OVER 100 TOMORROW YOU WILL NEED TO BE RECHECKED IN THE ED YOU NEED ASSISTANCE BECOMING DRUG FREE. CONSIDER THE FOLLOWING. Call [facility] office. Ask for Drug/Alcohol assessment [address], [address] [place] [address] ). Understanding of the discharge instructions verbalized by patient. Follow-up with: Marilee Kent MD, [facility], , [facility], [address] [place] [address] Follow up. Reason for referral: ESTABLISH PRIMARY CARE. ADDITIONAL INFORMATION Headache [Unspecified] The cause of your headache today is not clear, but it does not appear to be the sign of any serious illness. Under stress, some people tense the muscles of their shoulder, neck and scalp without knowing it. If this condition lasts long enough, a TENSION HEADACHE can occur. A MIGRAINE HEADACHE is caused by changes in blood flow to the brain. A migraine attack may be triggered by emotional stress, hormone changes during the menstrual cycle, oral contraceptives, alcohol use, certain foods containing tyramine, eye strain, weather changes, missing meals, lack of sleep or oversleeping. Other causes of headache include a viral illness with high fever, head injury with concussion, sinus, ear or throat infection, dental pain and TMJ (jaw joint) pain. More serious but less common causes of headache include stroke, brain hemorrhage, brain tumor, meningitis and encephalitis. Home Care: If you were given pain medicine for this headache, do not drive yourself home. Arrange for a ride, instead. When you get home, try to sleep. You should feel much better when you wake up. Apply heat to the back of your neck to relieve neck muscle spasm. Migraine headaches may respond best to an ice pack on the forehead or at the base of the skull. If you are having nausea or vomiting, follow a light diet until your headache is relieved. If you have a migraine type headache, use sunglasses when in the daylight or around bright indoor lighting until symptoms improve. Bright glaring light can worsen this kind of headache. Follow Up with your doctor if the headache is not better within the next 24 hours. If you have frequent headaches you should discuss a treatment plan with your primary care doctor. By being aware of the earliest signs of headache, and starting treatment right away, you may be able to stop the pain yourself. Get Prompt Medical Attention if any of the following occur: Worsening of your head pain or no improvement within 24 hours Repeated vomiting (unable to keep liquids down) Fever of 100.4F (38C) or higher, or as directed by your healthcare provider Stiff neck Extreme drowsiness, confusion or fainting Dizziness, vertigo (dizziness with spinning sensation) Weakness of an arm or leg or one side of the face Difficulty with speech or vision You have been given the following additional information: Headache, Unspecified (Electronically signed by Laurent Cali MD 04/30/2016 10:38)
--- NOTE | 2016-04-30 10:38 | ED DISCHARGE INSTRUCTIONS ---
Patient: LINDA SHEPHERD General Instructions [facility] VisitID: [id number] [place] [address] 20y, F Registration Date/Time: 04/28/2016 Headache. METHAMPHETAMINE ABUSE. SINUS TACHYCARDIA. INSTRUCTIONS (I MADE SURE THAT YOUR HEADACHE WAS NOT FROM NOT FROM BLEEDING IN THE BRAIN. IF YOUR HEART RATE IS OVER 100 TOMORROW YOU WILL NEED TO BE RECHECKED IN THE ED YOU NEED ASSISTANCE BECOMING DRUG FREE. CONSIDER THE FOLLOWING. Call [facility] office. Ask for Drug/Alcohol assessment [address] [facility] [address], [address] [place] [address] ). Understanding of the discharge instructions verbalized by patient. Follow-up with: Marilee Kent MD, [facility], , [facility], [address] [place] [address] Follow up. Reason for referral: ESTABLISH PRIMARY CARE. ADDITIONAL INFORMATION Headache [Unspecified] The cause of your headache today is not clear, but it does not appear to be the sign of any serious illness. Under stress, some people tense the muscles of their shoulder, neck and scalp without knowing it. If this condition lasts long enough, a TENSION HEADACHE can occur. A MIGRAINE HEADACHE is caused by changes in blood flow to the brain. A migraine attack may be triggered by emotional stress, hormone changes during the menstrual cycle, oral contraceptives, alcohol use, certain foods containing tyramine, eye strain, weather changes, missing meals, lack of sleep or oversleeping. Other causes of headache include a viral illness with high fever, head injury with concussion, sinus, ear or throat infection, dental pain and TMJ (jaw joint) pain. More serious but less common causes of headache include stroke, brain hemorrhage, brain tumor, meningitis and encephalitis. Home Care: If you were given pain medicine for this headache, do not drive yourself home. Arrange for a ride, instead. When you get home, try to sleep. You should feel much better when you wake up. Apply heat to the back of your neck to relieve neck muscle spasm. Migraine headaches may respond best to an ice pack on the forehead or at the base of the skull. If you are having nausea or vomiting, follow a light diet until your headache is relieved. If you have a migraine type headache, use sunglasses when in the daylight or around bright indoor lighting until symptoms improve. Bright glaring light can worsen this kind of headache. Follow Up with your doctor if the headache is not better within the next 24 hours. If you have frequent headaches you should discuss a treatment plan with your primary care doctor. By being aware of the earliest signs of headache, and starting treatment right away, you may be able to stop the pain yourself. Get Prompt Medical Attention if any of the following occur: Worsening of your head pain or no improvement within 24 hours Repeated vomiting (unable to keep liquids down) Fever of 100.4F (38C) or higher, or as directed by your healthcare provider Stiff neck Extreme drowsiness, confusion or fainting Dizziness, vertigo (dizziness with spinning sensation) Weakness of an arm or leg or one side of the face Difficulty with speech or vision You have been given the following additional information: Headache, Unspecified (Electronically signed by Laurent Cali MD 04/30/2016 10:38)
--- NOTE | 2016-04-30 10:38 | ED MAR SUMMARY ---
..... Medication Administration Record [facility] [address] [place] [address] Patient: LINDA SHEPHERD Visit ID: [id number] 20y, F Weight: 62.5 kg Height/Length: 65 in BMI: 23 ALLERGIES: No Known Drug Allergy Start 22:58 04/28/2016 Soila Saavedra RShadyN., Stop 03:49 04/29/2016 AliM, Medication Administered: IV NS (SALINE), Dose: IV Fluids, Rate: 250 mL/hr, Dispensed: 1000 mL bag, Site: #1 right AC. Medication Ordered: IV NS : initial bolus none -, then 250 mL/hr for 3h (NOW); Urgent. Given 23:57 04/28/2016 Soila Saavedra R.N. Medication Administered: ZOFRAN [IVP] (ONDANSETRON HCL), Dose: 4 mg IVP over 1 minute(s), Site: #1 right AC. Medication Ordered: Zofran IV 4 mg (NOW). Given 00:02 04/29/2016 Soila Saavedra RShadyN. Medication Administered: DILAUDID [IVP] (HYDROMORPHONE HCL PF), Dose: 0.5 mg IVP over 1 minute(s), Site: #1 right AC. Medication Ordered: Dilaudid IV 0.5 mg (HIGH ALERT MEDICATION). Start 04:22 04/29/2016 Titi,, Stop 07:05 04/29/2016 Citlalli Gonzalez RDimas. Medication Administered: IV NS (SALINE), Dose: IV Fluids over 60 minute(s), Rate: 1000 mL/hr, Dispensed: 1000 mL bag, Site: #1 right AC. Medication Ordered: IV NS : initial bolus none -, then 1000 mL/hr for 1h (NOW); Urgent.
== END 2016-04-29 08:00 | disposition home or self-care (01) ==
LOC: ED SRH 22:19
DX: R51 Headache (principal); F15.10 Other stimulant abuse, uncomplicated; R00.0 Tachycardia, unspecified; J45.909 Unspecified asthma, uncomplicated; Z79.899 Other long term (current) drug therapy
CPT/HCPCS: 81344; 90004; 90100; 90134; 90309; 92070; 92610; 92653; 93070; 95030; 95059